=== PATIENT | female | born 1940 | race Caucasian/White ===

== ENCOUNTER → 2020-04-04 | Outpatient (REF) | payer MEDICARE | LOC: M LAB REF 11:59 | PROVIDERS: ATTEND Physician Assistant Medical | DX: L02.212 Cutaneous abscess of back [any part, except buttock and flank] (principal) ==

== ENCOUNTER → 2020-06-03 | Outpatient (REF) | payer MEDICARE | LOC: M LAB REF 16:29 | PROVIDERS: ATTEND Internal Medicine | DX: R53.1 Weakness (principal) ==

== ENCOUNTER → 2020-10-14 | Outpatient (REF) | payer MEDICARE ==
[2020-10-14 17:05] LABS: RHEUMATOID FACTOR QUANT < 10.0 IU/ML (<15.0); TOTAL PROTEIN 7.2 GM/DL (6.4-8.2)
[2020-10-14 17:12] LABS: VITAMIN B12 LEVEL 446 PG/ML
[2020-10-14 17:14] LABS: FOLATE > 24.0 NG/ML
[2020-10-16 11:49] LABS: DRVV SCREEN 41.3 SEC
[2020-10-16 13:28] LABS: ALBUMIN 3.88 GM/DL (3.29-5.55); ALBUMIN % 53.9 % (55.8-66.1); ALPHA-1-GLOBULIN % 4.3 % (2.9-4.9); ALPHA-1-GLOBULINS 0.31 GM/DL (0.17-0.41); ALPHA-2-GLOBULINS 0.88 GM/DL (0.42-0.99); ALPHA-2-GLOBULINS % 12.2 % (7.1-11.8); BETA-1-GLOBULINS 0.53 GM/DL (0.28-0.60); BETA-1-GLOBULINS % 7.3 % (4.7-7.2); BETA-2-GLOBULINS 0.48 GM/DL (0.19-0.55); BETA-2-GLOBULINS % 6.7 % (3.2-6.5); GAMMA GLOBULIN % 15.6 % (11.1-18.8); GAMMA GLOBULINS 1.12 GM/DL (0.65-1.58)
[2020-10-19 23:07] LABS: ANCA-ATYPICAL <1:20 titer (Neg:<1:20); ANTI DS-DNA AB Negative (Negative); ANTINUCLEAR ANTIBODIES DIRECT Negative (Negative); CYTOPLASMIC NEUTROP AB ANCA-C <1:20 titer (Neg:<1:20); Lyme Disease IgG/IgM Antibodie <0.91 ISR (0.00-0.90); Lyme Disease IgM Ab Quantitati <0.80 index (0.00-0.79); PERINUCLEAR AB ANCA-P <1:20 titer (Neg:<1:20); SJOGREN'S ANTI SS-A <0.2 AI (0.0-0.9); SJOGREN'S ANTI SS-B <0.2 AI (0.0-0.9); VITAMIN B1 LEVEL WHOLE BLOOD 183.3 nmol/L (66.5-200.0); VITAMIN B6,PYRIDOXAL PHOSPHATE 25.3 ug/L (2.0-32.8); VITAMIN E(ALPHA TOCOPHEROL) 8.3 mg/L (9.0-29.0)
== END ==
LOC: M LAB REF 16:05
PROVIDERS: ATTEND Internal Medicine
DX: G60.9 Hereditary and idiopathic neuropathy, unspecified (principal)

== ENCOUNTER → 2022-01-20 | Outpatient (REF) | payer MEDICARE | LOC: M LAB REF 16:08 | PROVIDERS: ATTEND Internal Medicine | DX: N95.0 Postmenopausal bleeding (principal); R97.1 Elevated cancer antigen 125 [CA 125] ==

== ENCOUNTER → 2022-01-29 | Outpatient (CLI) | payer MEDICARE | LOC: M WHC 01-27 11:31 | PROVIDERS: ATTEND Internal Medicine | DX: N95.0 Postmenopausal bleeding (principal) ==

== ENCOUNTER → 2022-06-01 | Outpatient (CLI) | payer BC, MEDICARE ==
[~2022-06-01] MED LIST: ACET-897 PO; ALLO300T2 PO; ATEN25TA PO; ATOR1TAB21 PO; BUME1TAB3 PO; BUSP15TA47 PO; CLOP75TA2 PO; DORZ2SOL5 OU; ECOT81TA5 PO; EQL50TAB2 PO; VITA100093 PO
== END ==
LOC: M LABSMTC 11:31
PROVIDERS: ATTEND Anesthesiology
DX: Z01.818 Encounter for other preprocedural examination (principal); Z11.52 Encounter for screening for COVID-19

== ENCOUNTER 2022-06-04 09:34 | Day surgery (SDC) | payer MEDICARE ==
[~2022-06-04] VITALS: Ht 167.6 cm; Wt 92.5 kg
[2022-06-04 10:09] LABS: HEMATOCRIT 48.9 % (36.0-47.0); HEMOGLOBIN 15.8 g/dl (12.0-15.5); MEAN CORPUSCULAR HEMOGLOBIN 30.7 pg (27.0-33.0); MEAN CORPUSCULAR HGB CONC 32.3 g/dl (32.0-36.5); PLATELET COUNT, AUTOMATED 256 10^3/uL (150-450); RED BLOOD COUNT 5.15 10^6/uL (4.00-5.40); WHITE BLOOD COUNT 9.4 10^3/uL (4.0-10.0)
[2022-06-04] MEDS ORDERED: MIDAZOLAM INJ 2MG/2ML VIAL (J2250 PER 1MG) As Ordered ONE (11:47)
[2022-06-04] MEDS ORDERED: fentaNYL 100 MCG/2 ML INJECTION As Ordered ONE (11:48)
[2022-06-04] MEDS ORDERED: LIDOCAINE 2% 100MG/5ML SDV (FOR ANES.) As Ordered ONE (11:49)
[2022-06-04] MEDS ORDERED: propofoL 200 MG/20 ML VIAL As Ordered ONE (12:18)
[2022-06-04] MEDS ORDERED: dexameTHASONE 4 MG/ML 1ML VIAL (J1100 PER 1MG) As Ordered ONE (12:19)
[2022-06-04] MEDS ORDERED: ONDANSETRON 4MG 2ML VIAL As Ordered ONE (12:19)
[2022-06-04] MEDS ORDERED: ePHEDrine SULFATE 25 MG/5 ML(5MG/ML) SYRINGE As Ordered ONE (12:19)
[2022-06-04] MEDS ORDERED: ACETAMINOPHEN 1000MG 100ML IV BTL (OFIRMEV) (J0131 PER 10MG) As Ordered ONE (12:28)
[2022-06-04] MEDS ORDERED: LR 1,000 ML IV SCH ×2 (12:55→14:20)
[2022-06-04] MEDS ORDERED: ONDANSETRON 4MG 2ML VIAL IV PRN (12:55)
[2022-06-04] MEDS ORDERED: fentaNYL 100 MCG/2 ML INJECTION IV PRN (12:55)
[2022-06-04] MEDS ORDERED: KETOROLAC 30 MG/ML 1ML VIAL IV STA (13:13)
[2022-06-04 14:30] VITALS: BP 145/75
== END 2022-06-04 14:37 | disposition home or self-care (01) ==
LOC: M SDC 09:34
PROVIDERS: ATTEND Specialist
DX: C54.1 Malignant neoplasm of endometrium (principal); N84.0 Polyp of corpus uteri; N95.0 Postmenopausal bleeding; Z86.73 Personal history of transient ischemic attack (TIA), and cerebral infarction without residual deficits; H54.8 Legal blindness, as defined in USA; F41.1 Generalized anxiety disorder; M54.30 Sciatica, unspecified side; I11.9 Hypertensive heart disease without heart failure; M10.9 Gout, unspecified; E78.5 Hyperlipidemia, unspecified; H40.9 Unspecified glaucoma; Z79.899 Other long term (current) drug therapy; Z79.82 Long term (current) use of aspirin; Z79.02 Long term (current) use of antithrombotics/antiplatelets; Z88.8 Allergy status to other drugs, medicaments and biological substances; Z88.5 Allergy status to narcotic agent
CPT/HCPCS: 36415; 58558; 85027; 88305; J0131; J1100; J1885; J2250; J2405; J3010

== ENCOUNTER → 2022-08-17 | Outpatient (REF) | payer MEDICARE | LOC: M LAB REF 12:17 | PROVIDERS: ATTEND Internal Medicine | DX: Z01.818 Encounter for other preprocedural examination (principal) ==

== ENCOUNTER → 2022-08-21 | Outpatient (CLI) | payer MEDICARE | LOC: M WUC 11:26 | PROVIDERS: ATTEND Internal Medicine | DX: Z01.818 Encounter for other preprocedural examination (principal) ==

== ENCOUNTER → 2022-08-25 | Outpatient (CLI) | payer MEDICARE | LOC: M LABSMTC 10:01 | PROVIDERS: ATTEND Nurse Practitioner | DX: Z01.818 Encounter for other preprocedural examination (principal) ==

== ENCOUNTER → 2022-10-20 | Outpatient (REF) | payer MEDICARE | LOC: M LAB REF 16:16 | PROVIDERS: ATTEND Internal Medicine | DX: R33.9 Retention of urine, unspecified (principal); G60.9 Hereditary and idiopathic neuropathy, unspecified; I11.9 Hypertensive heart disease without heart failure ==

== ENCOUNTER → 2022-12-28 | Outpatient (REF) | payer MEDICARE | LOC: M LAB REF 12:23 | PROVIDERS: ATTEND Internal Medicine | DX: N39.0 Urinary tract infection, site not specified (principal) ==

== ENCOUNTER → 2023-01-11 | Outpatient (REF) | payer MEDICARE ==
[2023-01-11 17:43] LABS: APPEARANCE, URINE HAZY (CLEAR); BACTERIA, URINE AUTO NEGATIVE (NEGATIVE); BILIRUBIN, URINE AUTO NEGATIVE (NEGATIVE); BLOOD, URINE BLOOD NEGATIVE (NEGATIVE); CALCIUM OXALATE CRYSTALS MODERATE; COLOR, URINE YELLOW (YELLOW); GLUCOSE, URINE (UA) AUTO NEGATIVE (NEGATIVE); KETONE, URINE AUTO NEGATIVE (NEGATIVE); LEUKOCYTE ESTERASE, URINE AUTO 1+ (NEGATIVE); MUCUS, URINE SMALL (NEGATIVE); NITRITE, URINE AUTO NEGATIVE (NEGATIVE); PROTEIN, URINE AUTO NEGATIVE (NEGATIVE); RBC, URINE AUTO 3 /HPF (0-3); SPECIFIC GRAVITY URINE AUTO 1.019 (1.002-1.035); SQUAMOUS EPITHELIAL CELL UR AU 2 /HPF (0-6); UROBILINOGEN, URINE AUTO 0.2 mg/dL (0.0-2.0); WBC, URINE AUTO 6 /HPF (0-3)
== END ==
LOC: M LAB REF 16:26
PROVIDERS: ATTEND Internal Medicine
DX: N39.0 Urinary tract infection, site not specified (principal)

== ENCOUNTER → 2023-01-22 | Outpatient (CLI) | payer MEDICARE | LOC: M WHC 08:05 | PROVIDERS: ATTEND Internal Medicine | DX: R17 Unspecified jaundice (principal) ==

== ENCOUNTER 2023-02-09 10:53 | Observation (INO) | payer MEDICARE ==
[~2023-02-09] VITALS: Ht 167.6 cm; Wt 95.5 kg
[2023-02-09] MEDS: ACETAMINOPHEN 650MG ER TAB (TYLENOL ARTHRITIS) PO SCH ×2 (13:08→19:30)
[2023-02-09] MEDS ORDERED: MORPHINE 2 MG/ML 1ML VIAL IV ONE (14:05)
[2023-02-09] MEDS ORDERED: ONDANSETRON 4MG 2ML VIAL IV ONE (14:05)
[2023-02-09 15:01] LABS: BASO # 0.1 10^3/uL (0.0-0.2); BASO % 0.7 % (0.0-1.0); EOS # 0.2 10^3/uL (0.0-0.5); EOS % 1.6 % (0.0-3.0); HEMATOCRIT 50.3 % (36.0-47.0); HEMOGLOBIN 16.3 g/dl (12.0-15.5); LYMPH # 2.1 10^3/uL (1.5-5.0); MEAN CORPUSCULAR HEMOGLOBIN 29.8 pg (27.0-33.0); MEAN CORPUSCULAR HGB CONC 32.4 g/dl (32.0-36.5); MONO # 0.6 10^3/uL (0.0-0.8); MONO % 6.8 % (2.0-8.0); NEUTROPHILS # 6.2 10^3/uL (1.5-8.5); NEUTROPHILS % 67.7 % (36.0-66.0); PLATELET COUNT, AUTOMATED 280 10^3/uL (150-450); RED BLOOD COUNT 5.47 10^6/uL (4.00-5.40); WHITE BLOOD COUNT 9.2 10^3/uL (4.0-10.0)
[2023-02-09 15:14] LABS: ERYTHROCYTE SEDIMENTATION RATE 58 mm/hr (0-30)
[2023-02-09 15:19] LABS: BLOOD UREA NITROGEN 16 MG/DL (9-23); C REACTIVE PROTEIN QUANTITATIV < 0.40 MG/DL (<1.0); CALCIUM LEVEL 9.8 MG/DL (8.3-10.6); CARBON DIOXIDE LEVEL 24 MMOL/L (20-31); CHLORIDE LEVEL 106 MMOL/L (98-107); GLOMERULAR FILTRATION RATE > 60.0 (>32); GLUCOSE, FASTING 101 MG/DL (74-106); POTASSIUM SERUM 4.3 MMOL/L (3.5-5.1); SODIUM LEVEL 141 MMOL/L (136-145)
[2023-02-09 15:34] LABS: RSV AMPLIFICATION NEGATIVE (NEGATIVE)
[2023-02-09] MEDS ORDERED: atenoloL 25 MG TAB PO ONE (15:35)
[2023-02-09 16:51] LABS: CRYSTALS, BODY FLUID NONE SEEN (NONE SEEN); SOURCE, BODY FLUID CRYSTALS LFT KNEE
[2023-02-09] MEDS ORDERED: hydrALAZINE 20MG/ML 1ML VIAL IV ONE (19:10)
[2023-02-09] MEDS ORDERED: ACET650T3 PO (20:19)
[2023-02-09] MEDS ORDERED: HOME MED LIST COMPLETE! XX SCH (20:25)
[2023-02-09] MEDS ORDERED: MOM 30ML SUSPENSION UDC PO PRN (20:35)
[2023-02-09] MEDS ORDERED: hydrALAZINE 20MG/ML 1ML VIAL IV PRN (20:35)
[2023-02-09] MEDS: COSOPT OCUMETER PLUS 10ML (DORZOLAMIDE/TIMOLOL) OU SCH (21:00)
[2023-02-09 21:45] VITALS: BP 170/87
[2023-02-09] MEDS: HEPARIN SOD (PORCINE) 5000UNITS/ML 1ML VIAL/SYRINGE SC SCH (22:18)
[2023-02-09] MEDS: busPIRone 5 MG TAB PO SCH (22:18)
[2023-02-09] MEDS: atenoloL 25 MG TAB PO SCH (22:19)
[2023-02-09] MEDS: DOCUSATE SODIUM 100MG CAPSULE PO SCH (22:19)
[2023-02-09 23:12] VITALS: BP 126/58
[2023-02-10 03:42] VITALS: BP 125/58
[2023-02-10 05:53] LABS: HEMATOCRIT 45.5 % (36.0-47.0); HEMOGLOBIN 14.8 g/dl (12.0-15.5); MEAN CORPUSCULAR HEMOGLOBIN 30.1 pg (27.0-33.0); MEAN CORPUSCULAR HGB CONC 32.5 g/dl (32.0-36.5); MEAN CORPUSCULAR VOLUME 92.5 fl (80.0-96.0); PLATELET COUNT, AUTOMATED 224 10^3/uL (150-450); RED BLOOD COUNT 4.92 10^6/uL (4.00-5.40); WHITE BLOOD COUNT 7.5 10^3/uL (4.0-10.0)
[2023-02-10 06:22] LABS: ALBUMIN 3.4 G/DL (3.2-5.2); ALKALINE PHOSPHATASE 99 U/L (46-116); ALT/SGPT 18 U/L (7.0-40); AST/SGOT 19 U/L (<34); BILIRUBIN,TOTAL 1.5 MG/DL (0.3-1.2); BLOOD UREA NITROGEN 16 MG/DL (9-23); CARBON DIOXIDE LEVEL 25 MMOL/L (20-31); CHLORIDE LEVEL 106 MMOL/L (98-107); CREATININE FOR GFR 0.72 MG/DL (0.55-1.30); GLOMERULAR FILTRATION RATE > 60.0 (>32); GLUCOSE, FASTING 87 MG/DL (74-106); POTASSIUM SERUM 3.8 MMOL/L (3.5-5.1); SODIUM LEVEL 141 MMOL/L (136-145); TOTAL PROTEIN 6.3 G/DL (5.7-8.2)
[2023-02-10] MEDS: HEPARIN SOD (PORCINE) 5000UNITS/ML 1ML VIAL/SYRINGE SC SCH ×3 (06:22→21:39)
[2023-02-10 07:37] VITALS: BP 144/86
[2023-02-10] MEDS: allopurinoL 300 MG TAB PO SCH (07:38)
[2023-02-10] MEDS: DOCUSATE SODIUM 100MG CAPSULE PO SCH ×2 (07:38→20:27)
[2023-02-10] MEDS: CLOPIDOGREL 75 MG TAB PO SCH (07:38)
[2023-02-10] MEDS: busPIRone 5 MG TAB PO SCH ×2 (07:39→20:27)
[2023-02-10] MEDS: ASPIRIN 81MG ENTERIC TABLET PO SCH (07:39)
[2023-02-10] MEDS: atenoloL 25 MG TAB PO SCH (07:39)
[2023-02-10] MEDS: ATORVASTATIN 20 MG TAB PO SCH (07:39)
[2023-02-10] MEDS: ACETAMINOPHEN TAB 650MG DOSE (2X325MG) PO PRN (07:40)
[2023-02-10] MEDS ORDERED: MIRALAX *UNIT DOSE* 17GM PACKET PO PRN (08:15)
[2023-02-10] MEDS ORDERED: ACETAMINOPHEN 500 MG TAB PO ONE (08:15)
[2023-02-10] MEDS ORDERED: SENOKOT S TAB PO PRN (08:15)
[2023-02-10] MEDS ORDERED: MOM 30ML SUSPENSION UDC PO PRN (08:15)
[2023-02-10] MEDS ORDERED: traMADol 50 MG TAB PO ONE (08:50)
[2023-02-10] MEDS: LOSARTAN 25 MG TAB PO SCH ×2 (09:00→20:27)
[2023-02-10 09:42] VITALS: BP 122/76
[2023-02-10] MEDS ORDERED: traMADol 50 MG TAB PO PRN (12:00)
[2023-02-10] MEDS: COSOPT OCUMETER PLUS 10ML (DORZOLAMIDE/TIMOLOL) OU SCH ×2 (12:47→20:27)
[2023-02-10] MEDS: traMADol 50 MG TAB PO SCH ×2 (13:24→21:56)
[2023-02-10 15:55] VITALS: BP 126/74
[2023-02-10] MEDS ORDERED: BUPIVACAINE HCL 0.25% 10ML VIAL SC ONE (16:00)
[2023-02-10] MEDS ORDERED: TRIAMCINOLONE ACETONIDE SUSP 40MG/ML 1ML VIAL IA ONE (16:00)
[2023-02-10] MEDS ORDERED: LIDOCAINE 1% MDV 20ML VIAL SC ONE (16:00)
[2023-02-10 20:02] VITALS: BP 198/78
[2023-02-10 21:30] VITALS: BP 158/96
[2023-02-11] VITALS (8 sets, daily range): BP systolic 101–192; BP diastolic 58–90
[2023-02-11] MEDS: traMADol 50 MG TAB PO SCH (06:00)
[2023-02-11] MEDS: HEPARIN SOD (PORCINE) 5000UNITS/ML 1ML VIAL/SYRINGE SC SCH ×3 (06:49→21:37)
[2023-02-11] MEDS: ACETAMINOPHEN TAB 650MG DOSE (2X325MG) PO PRN (06:50)
[2023-02-11] MEDS: LOSARTAN 25 MG TAB PO SCH (08:44)
[2023-02-11] MEDS: CLOPIDOGREL 75 MG TAB PO SCH (08:44)
[2023-02-11] MEDS: ATORVASTATIN 20 MG TAB PO SCH (08:45)
[2023-02-11] MEDS: DOCUSATE SODIUM 100MG CAPSULE PO SCH ×2 (08:45→21:00)
[2023-02-11] MEDS: ASPIRIN 81MG ENTERIC TABLET PO SCH (08:45)
[2023-02-11] MEDS: allopurinoL 300 MG TAB PO SCH (08:45)
[2023-02-11] MEDS: atenoloL 25 MG TAB PO SCH (08:45)
[2023-02-11] MEDS: busPIRone 5 MG TAB PO SCH ×2 (08:46→21:38)
[2023-02-11] MEDS: COSOPT OCUMETER PLUS 10ML (DORZOLAMIDE/TIMOLOL) OU SCH ×2 (08:47→21:38)
[2023-02-11] MEDS ORDERED: ISOSORBIDE DIN. (ISORDIL) 20 MG TAB PO SCH (09:00)
[2023-02-11] MEDS: ACETAMINOPHEN 500 MG TAB PO SCH ×3 (12:38→23:37)
[2023-02-11] MEDS: ISOSORBIDE DIN. (ISORDIL) 30 MG TAB PO SCH ×2 (15:23→21:38)
[2023-02-11 15:25] LABS: ALBUMIN 3.9 G/DL (3.2-5.2); ALKALINE PHOSPHATASE 106 U/L (46-116); ALT/SGPT 20 U/L (7.0-40); AST/SGOT 21 U/L (<34); BILIRUBIN,TOTAL 1.2 MG/DL (0.3-1.2); BLOOD UREA NITROGEN 32 MG/DL (9-23); CALCIUM LEVEL 10.2 MG/DL (8.3-10.6); CARBON DIOXIDE LEVEL 22 MMOL/L (20-31); CHLORIDE LEVEL 106 MMOL/L (98-107); CREATININE FOR GFR 0.79 MG/DL (0.55-1.30); GLOMERULAR FILTRATION RATE > 60.0 (>32); GLUCOSE, FASTING 137 MG/DL (74-106); POTASSIUM SERUM 4.1 MMOL/L (3.5-5.1); SODIUM LEVEL 140 MMOL/L (136-145); TOTAL PROTEIN 7.3 G/DL (5.7-8.2)
[2023-02-12] VITALS (7 sets, daily range): BP systolic 102–182; BP diastolic 55–90
[2023-02-12] MEDS: ACETAMINOPHEN 500 MG TAB PO SCH ×5 (05:46→23:51)
[2023-02-12] MEDS: HEPARIN SOD (PORCINE) 5000UNITS/ML 1ML VIAL/SYRINGE SC SCH ×3 (05:47→23:51)
[2023-02-12] MEDS: atenoloL 25 MG TAB PO SCH (08:24)
[2023-02-12] MEDS: allopurinoL 300 MG TAB PO SCH (08:24)
[2023-02-12] MEDS: CLOPIDOGREL 75 MG TAB PO SCH (08:24)
[2023-02-12] MEDS: ASPIRIN 81MG ENTERIC TABLET PO SCH (08:25)
[2023-02-12] MEDS: COSOPT OCUMETER PLUS 10ML (DORZOLAMIDE/TIMOLOL) OU SCH ×2 (08:26→20:57)
[2023-02-12] MEDS: ISOSORBIDE DIN. (ISORDIL) 30 MG TAB PO SCH (08:26)
[2023-02-12] MEDS: DOCUSATE SODIUM 100MG CAPSULE PO SCH ×2 (08:26→20:57)
[2023-02-12] MEDS: ATORVASTATIN 20 MG TAB PO SCH (08:26)
[2023-02-12] MEDS: busPIRone 5 MG TAB PO SCH ×2 (10:26→20:57)
[2023-02-12] MEDS ORDERED: ISOS30TAB PO ×2 (10:36→10:40)
[2023-02-12] MEDS ORDERED: ACET-683 PO (10:36)
[2023-02-12] MEDS ORDERED: ATEN25TA PO ×2 (10:37→10:40)
[2023-02-12] MEDS ORDERED: cloNIDine 0.1MG TABLET PO ONE ×2 (10:45→11:30)
[2023-02-12] MEDS ORDERED: AMLO10TA PO (11:08)
[2023-02-13 04:00] VITALS: BP 160/80
[2023-02-13] MEDS: HEPARIN SOD (PORCINE) 5000UNITS/ML 1ML VIAL/SYRINGE SC SCH (06:08)
[2023-02-13] MEDS: ACETAMINOPHEN 500 MG TAB PO SCH ×2 (06:08→11:17)
[2023-02-13 08:10] VITALS: BP 182/102
[2023-02-13 08:11] VITALS: BP 182/102
[2023-02-13] MEDS: busPIRone 5 MG TAB PO SCH (08:11)
[2023-02-13] MEDS: allopurinoL 300 MG TAB PO SCH (08:11)
[2023-02-13] MEDS: ATORVASTATIN 20 MG TAB PO SCH (08:12)
[2023-02-13] MEDS: CLOPIDOGREL 75 MG TAB PO SCH (08:12)
[2023-02-13] MEDS: DOCUSATE SODIUM 100MG CAPSULE PO SCH (08:12)
[2023-02-13] MEDS: COSOPT OCUMETER PLUS 10ML (DORZOLAMIDE/TIMOLOL) OU SCH (08:12)
[2023-02-13] MEDS: ASPIRIN 81MG ENTERIC TABLET PO SCH (08:12)
[2023-02-13] MEDS ORDERED: cloNIDine 0.1MG TABLET PO ONE (08:15)
[2023-02-13 08:41] VITALS: BP 186/96
[2023-02-13] MEDS ORDERED: ISOSORBIDE MON. (IMDUR) 60MG XR TAB PO SCH (09:00)
[2023-02-13 09:49] VITALS: BP 126/72
[2023-02-13] MEDS ORDERED: SELF1KIT MC (10:36)
[2023-02-13] MEDS ORDERED: atenoloL 25 MG TAB PO SCH (21:00)
== END 2023-02-13 12:06 | disposition home health service (06) ==
LOC: M ED 10:53 → INTOOBSV 20:34 → M ED INP 20:34 → M PCU 21:30
PROVIDERS: ADMIT Family Medicine; ATTEND Family Medicine
DX: S83.242A Other tear of medial meniscus, current injury, left knee, initial encounter (principal); M17.12 Unilateral primary osteoarthritis, left knee; M25.462 Effusion, left knee; M67.362 Transient synovitis, left knee; X58.XXXA Exposure to other specified factors, initial encounter; Y92.89 Other specified places as the place of occurrence of the external cause; R26.81 Unsteadiness on feet; I16.0 Hypertensive urgency; R41.0 Disorientation, unspecified; R00.1 Bradycardia, unspecified; T44.7X5A Adverse effect of beta-adrenoreceptor antagonists, initial encounter; T40.425A Adverse effect of tramadol, initial encounter; H54.8 Legal blindness, as defined in USA; R44.0 Auditory hallucinations; R44.1 Visual hallucinations; M25.562 Pain in left knee; M79.89 Other specified soft tissue disorders; R51.9 Headache, unspecified; Z86.73 Personal history of transient ischemic attack (TIA), and cerebral infarction without residual deficits; I10 Essential (primary) hypertension; F41.9 Anxiety disorder, unspecified; M10.9 Gout, unspecified; E78.5 Hyperlipidemia, unspecified; Z85.44 Personal history of malignant neoplasm of other female genital organs; Z79.899 Other long term (current) drug therapy; Z79.82 Long term (current) use of aspirin; Z79.02 Long term (current) use of antithrombotics/antiplatelets; Z88.5 Allergy status to narcotic agent; Z88.8 Allergy status to other drugs, medicaments and biological substances
CPT/HCPCS: 20610; 36415; 70450; 73502; 73552; 73564; 73721; 80048; 80053; 85025; 85027; 85652; 86140; 87070; 87205; 87631; 89060; 93005; 93041; 93971; 94760; 96372; 96374; 96375; 97116; 97161; 97165; 97530; 97535; 99285; G0378; J0360; J2405; J3301

== ENCOUNTER → 2023-04-06 | Outpatient (REF) | payer MEDICARE ==
[~2023-04-06] MED LIST changes: +ACET-683 PO; +ACET650T3 PO; +AMLO10TA PO; +ISOS30TAB PO; +SELF1KIT MC
== END ==
LOC: M LAB REF 16:25
PROVIDERS: ATTEND Nurse Practitioner Family
DX: N39.0 Urinary tract infection, site not specified (principal)

== ENCOUNTER → 2023-07-22 | Outpatient (REF) | payer MEDICARE | LOC: M LAB REF 16:12 | PROVIDERS: ATTEND Internal Medicine | DX: N39.0 Urinary tract infection, site not specified (principal) ==

== ENCOUNTER → 2024-05-02 | Outpatient (CLI) | payer MEDICARE | LOC: M RAD 08:58 | PROVIDERS: ATTEND Internal Medicine | DX: I70.1 Atherosclerosis of renal artery (principal) ==

== ENCOUNTER → 2024-05-05 | Outpatient (REF) | payer MEDICARE | LOC: M LAB REF 16:02 | PROVIDERS: ATTEND Internal Medicine | DX: N39.0 Urinary tract infection, site not specified (principal) ==

== ENCOUNTER → 2024-05-25 | Outpatient (REF) | payer MEDICARE | LOC: M LAB REF 16:38 | PROVIDERS: ATTEND Internal Medicine | DX: R30.0 Dysuria (principal) ==

== ENCOUNTER → 2025-06-21 | Outpatient (REF) | payer MEDICARE ==
[~2025-06-21] MED LIST changes: +AMLO-751 PO; -AMLO10TA PO; -EQL50TAB2 PO; +ISOS-18 PO; -ISOS30TAB PO; +VITA1TAB82 PO
== END ==
LOC: M LAB REF 09:30
PROVIDERS: ATTEND Internal Medicine
DX: N39.0 Urinary tract infection, site not specified (principal)

== ENCOUNTER → 2025-07-11 | Outpatient (REF) | payer MEDICARE | LOC: M LAB REF 13:46 | PROVIDERS: ATTEND Internal Medicine | DX: N39.0 Urinary tract infection, site not specified (principal) ==

== ENCOUNTER → 2025-08-03 | Outpatient (REF) | payer MEDICARE ==
[2025-08-03 17:39] LABS: APPEARANCE, URINE HAZY (CLEAR); BACTERIA, URINE AUTO 1+ (NEGATIVE); BILIRUBIN, URINE AUTO NEGATIVE (NEGATIVE); BLOOD, URINE BLOOD 1+ (NEGATIVE); CALCIUM OXALATE CRYSTALS LARGE; GLUCOSE, URINE (UA) AUTO NEGATIVE (NEGATIVE); KETONE, URINE AUTO NEGATIVE (NEGATIVE); LEUKOCYTE ESTERASE, URINE AUTO 1+ (NEGATIVE); MUCUS, URINE SMALL (NEGATIVE); NITRITE, URINE AUTO POSITIVE (NEGATIVE); PROTEIN, URINE AUTO NEGATIVE (NEGATIVE); RBC, URINE AUTO 1 /HPF (0-3); SPECIFIC GRAVITY URINE AUTO 1.023 (1.002-1.035); SQUAMOUS EPITHELIAL CELL UR AU 6 /HPF (0-6); UROBILINOGEN, URINE AUTO 0.2 mg/dL (0.0-2.0); WBC, URINE AUTO 16 /HPF (0-3)
== END ==
LOC: M SMT 17:02
PROVIDERS: ATTEND Physician Assistant
DX: R32 Unspecified urinary incontinence (principal)

== ENCOUNTER → 2025-08-28 | Outpatient (REF) | payer MEDICARE ==
[2025-08-29 16:58] LABS: STABLE ALKPHOS 49 U/L
[2025-08-29 16:59] LABS: % LABILE ALKALINE PHOSPHATASE 64 %; LABILE ALKPHOS 87 U/L
== END ==
LOC: M LAB REF 14:26
PROVIDERS: ATTEND Internal Medicine
DX: R74.8 Abnormal levels of other serum enzymes (principal)